=== PATIENT | male | born 1960 | race Caucasian/White ===

== ENCOUNTER 2020-07-14 12:33 | Outpatient (CLI) | payer OTHER, BC, SELFPAY ==
[2020-07-14 13:13] LABS: Basophils Absolute Auto 0.1 K/mm3 (0.0-0.1); Eosinophils Absolute Auto 0.1 K/mm3 (0-0.3); Eosinophils Percent Auto 0.9 % (0-4.4); Hematocrit 44.7 % (42.0-52.0); Hemoglobin 14.7 g/dL (14.0-18.0); Immature Granulocyte Absolute 0.02 K/mm3 (0.00-0.031); Immature Granulocyte Percent A 0.3 % (0-0.5); Lymphocytes Absolute Auto 1.82 K/mm3 (0.9-3.2); Mean Corpuscular HGB Conc 32.9 g/dl (32-36); Mean Corpuscular Hemoglobin 29.4 pg (26-34); Mean Corpuscular Volume 89.4 fl (80-100); Mean Platelet Volume 9.7 fl (7.4-10.4); Monocytes Absolute Auto 0.4 K/mm3 (0.1-0.6); Neutrophils Absolute Auto 4.6 K/mm3 (1.3-6.7); Neutrophils Percent Auto 65.8 % (45.5-73.1); Platelet Count Result 426 k/mm3 (150-375); Red Cell Distribution Width 13.1 % (11.5-14.5)
[2020-07-14 13:36] LABS: Alanine Aminotransferase 38 U/L (4-50); Alkaline Phosphatase 144 U/L (38-126); Anion Gap 5 mmol/L (8-16); Aspartate Amino Transferase 36 U/L (17-59); Bilirubin,Total 0.6 mg/dL (0.2-1.3); Blood Urea Nitrogen 17 mg/dL (9-20); Calcium 9.2 mg/dL (8.4-10.2); Carbon Dioxide 31 mmol/L (22-30); Chloride 107 mmol/L (98-107); Estimated Glomerular Filt Rate > 60; Glucose 117 mg/dL (75-110); Potassium 4.5 mmol/L (3.4-5.0); Sodium 143 mmol/L (137-145)
== END 2020-07-14 12:34 | disposition home or self-care (01) ==
PROVIDERS: PCP Internal Medicine; Visit Provider Nurse Practitioner
DX: Z01.812 Encounter for preprocedural laboratory examination (principal)
CPT/HCPCS: 36415; 80053; 85025

== ENCOUNTER → 2021-06-19 01:23 | Outpatient (CLI) | payer BC, SELFPAY ==
[2021-06-21 14:20] LABS: SARS-CoV-2 RNA PCR Positive
== END ==
PROVIDERS: PCP Internal Medicine; Visit Provider Nurse Practitioner
DX: U07.1 COVID-19 (principal)
CPT/HCPCS: C9803; U0003; U0005

== ENCOUNTER 2023-07-14 17:55 | Emergency (ER) | payer BC, SELFPAY ==
--- NOTE | ~2023-07-14 | XR_ITS ---
EXAMINATION: XR hand RT min 3V DATE: 07/14/2023 18:11 INDICATION: Right hand injury. TECHNIQUE: 3 views of right hand were obtained. COMPARISON: None. FINDINGS: There is an oblique fracture of diaphysis of first metacarpal. The distal fracture fragment demonstrates near-anatomic alignment. There is mild osteoarthritis of first carpometacarpal joint an d most of the interphalangeal joints. There is moderate osteoarthritis of third distal interphalangea l joint. There is degenerative cystic change in proximal lunate. IMPRESSION: 1. Oblique fracture of diaphysis of first metacarpal. Reviewed, dictated and finalized at location E. [facility]
[2023-07-14 18:02] VITALS: BP 132/88; PULSE 84; RESP 16; TEMP 37.3; O2SAT 98
--- NOTE | 2023-07-14 18:10 | ED.UPPEXIN ---
HPI - Extremity Injury (Upper) General Chief Complaint: Extremity Injury, Upper Stated Complaint: R HAND SWELLING Time Seen by Provider: 07/14/23 18:10 Source: patient, RN notes reviewed and old records reviewed Mode of arrival: ambulatory Limitations: no limitations History of Present Illness HPI narrative: 63-year-old male presents to the [facility] with complaints of right hand pain and swelling. Patient states that on Monday he was working in his garage when he was torquing an object when at the flu back at him and hit him in the base of the right hand just below the thumb. Bruising and swelling noted. Has been applying ice to it. Small abrasion that is clean dry noted to the area. No laceration Patient reports his last Tdap was approximately 3 years ago, is declining a tetanus shot today. MD complaint: injury to: right and hand Onset (ago): day(s) (2) Treatments prior to arrival: other (Ice) Related Data Home Medications Medication Instructions Recorded Confirmed No Home Medications 07/14/23 07/14/23 Allergies Allergy/AdvReac Type Severity Reaction Status Date / Time No Known Allergies Allergy Unverified 07/14/23 18:03 Review of Systems Review of Systems: All systems reviewed & are unremarkable except as noted in HPI and below Constitutional: Constitutional: Reports no additional constitutional complaints Eyes: Eyes: Reports no additional eye complaints ENT: Reports system reviewed and no additional complaints, except as documented Cardiovascular: Cardiovascular: Reports no additional cardiovascular complaints, Denies chest pain and Denies dyspnea Respiratory: Respiratory: Reports no additional respiratory complaints, Denies chest congestion, Denies cough and Denies dyspnea Gastrointestinal: Gastrointestinal: Reports no additional gastrointestinal complaints, Denies abdominal pain, Denies nausea and Denies vomiting Musculoskeletal: Musculoskeletal: Reports as per HPI Integumentary/Breasts: Skin/Breast: Reports system reviewed and no additional complaints, except as docu Neurologic: Reports system reviewed and no additional complaints, except as documented Psychiatric: Psychiatric: Reports no additional psychiatric complaints Allergic/Immunologic: Allergic/Immunologic: Reports no additional allergic/immunologic complaints PMFSH Past Medical History Medical History Leg fracture, right Surgical History Surgical History Lower extremity surgery planned Pin and 4 screws Family History Family History Father Family history of lung cancer Mother CHF (congestive heart failure) COPD (chronic obstructive pulmonary disease) Social History Social History Smoking status: Former smoker Smoking end date: 07/10/84 Alcohol intake: current Comments At the time of my signature, I reviewed and agree with the nursing past medical, surgical, social, and family history. There is no relevant family history pertinent to the patient complaint. Exam Const: General: cooperative, healthy appearing, comfortable, no acute distress, well developed, alert and well nourished Nutritional Appearance: well nourished Orientation/consciousness: patient oriented x3 Limitations: no limitations HENMT: Head: normal to inspection Ears: hearing grossly normal bilaterally and external ears normal Face/Nose/Sinus: Normal external nose present, Normal nares present, Normal nasal mucous membranes and turbinates present, normal facial exam and face symmetric Face and sinus: normal facial exam and face symmetric Mouth: Yes lip normal and Yes moist mucous membranes Eyes: General: appearance normal, both eyes and all related structures Alignment and Position: alignment normal Periorbital: periorbital find
--- NOTE | 2023-07-14 18:23 | PC.NURSE ---
patient refuse update on tetanus shot today, stated he is up to date last tetanus about 3 years ago
== END 2023-07-14 18:55 | disposition home or self-care (01) ==
PROVIDERS: Emergency Provider Nurse Practitioner; PCP Internal Medicine
DX: S62.241A Displaced fracture of shaft of first metacarpal bone, right hand, initial encounter for closed fracture (principal); W22.8XXA Striking against or struck by other objects, initial encounter; Z87.891 Personal history of nicotine dependence
CPT/HCPCS: 29125; 73130; 99204; A4565; G0463

== ENCOUNTER 2023-07-31 08:48 | Outpatient (CLI) | payer BC, SELFPAY ==
--- NOTE | ~2023-07-31 | XR_ITS ---
Right Hand Technique: PA, oblique, and lateral views were obtained. Clinical History: First metacarpal fracture COMPARISON: 07/14/2023 Findings: Oblique fracture of the midshaft of the first metacarpal is unchanged from prior exam, stat us post interval casting/splinting. Remaining osseous structures are intact. Joint spaces are preserv ed. Soft tissues are unremarkable. Impression: Stable oblique fracture of the first metacarpal, status post interval casting/splinting. Reviewed, dictated and finalized at location [facility] Impression: Stable oblique fracture of the first metacarpal, status post interval casting/s plinting.
== END 2023-07-31 08:49 | disposition home or self-care (01) ==
PROVIDERS: PCP Internal Medicine; Visit Provider Plastic Surgery
DX: S62.201A Unspecified fracture of first metacarpal bone, right hand, initial encounter for closed fracture (principal); X58.XXXA Exposure to other specified factors, initial encounter
CPT/HCPCS: 73130

== ENCOUNTER 2023-08-21 09:06 | Outpatient (CLI) | payer BC, SELFPAY ==
--- NOTE | ~2023-08-21 | XR_ITS ---
EXAMINATION: XR hand RT min 3V DATE: 08/21/2023 09:22 INDICATION: Right first metacarpal fracture. TECHNIQUE: 3 views of right hand were obtained. COMPARISON: Right hand radiographs 07/31/2023, 07/14/2023 FINDINGS: There is an oblique fracture of diaphysis of first metacarpal. The distal fracture fragment demonstrates one cortical width ulnar displacement and 23 degrees palmar angulation. There is mild o steoarthritis of triscaphe joint, first carpometacarpal joint, and some of the interphalangeal joints . There is moderate osteoarthritis of third distal interphalangeal joint. IMPRESSION: 1. Unchanged oblique fracture of diaphysis of first metacarpal. 2. Polyarticular osteoarthritis. Reviewed, dictated and finalized at location A. [facility]
== END 2023-08-21 09:07 | disposition home or self-care (01) ==
PROVIDERS: PCP Internal Medicine; Visit Provider Plastic Surgery
DX: M19.041 Primary osteoarthritis, right hand (principal); S62.201A Unspecified fracture of first metacarpal bone, right hand, initial encounter for closed fracture; X58.XXXA Exposure to other specified factors, initial encounter
CPT/HCPCS: 73130

== ENCOUNTER 2023-09-22 12:15 | Outpatient (RCR) | payer BC, SELFPAY ==
--- NOTE | 2023-09-08 11:43 | OTOPEVAL1 ---
Assessment and note entered by SHAE Emery/Cassidy, NO Evaluation Information 09/08/23 Assessment Status Evaluation Diagnosis Nondisplaced fracture of shaft of 1st metacarpal bone, right hand Onset 07/12/22 Subjective Information Patient fractured his 1st metacarpal ~8 weeks ago. Treated conservatively. Patient presents to therapy to begin ROM. He reports residual swelling , stiffness, and pain have been very limiting. He reports he has been relying on his left hand a lot . He is regional tanker truck driver. Reported Pain Level Additional Pain Score Comments No pain at rest. Pain increased to 5-7/10 with ROM. Assessment OT Clinical Summary Patient presents with residual stiffness, weakness , and pain following a metacarpal fracture of the right thumb. Skilled OT indicated to maximize functional ROM, strength, and hand use for ADLs and work tasks through therapeutic exercise, HEP instruction/progression, and use of thermal modalities. Plan of Care Interventions Therapeutic Exercise,Manual Therapy,Therapeutic Activities,Hot Pack/Cold Pack,Paraffin OT Services Indicated Yes Treatment Frequency and 2x/week for 6 visits Duration These treatments will address the objective and functional deficits as defined above. The patient will be advanced safely and appropriately in order for the patient to progress towards his/her prior level of function. Additional exercises will be introduced and as well as a comprehensive home exercise program upon discharge, if needed, ?to ensure carryover of functional gains achieved in the clinic. This treatment plan has been reviewed and agreement upon by the patient.
--- NOTE | 2023-09-08 11:44 | OPREHPOC ---
Outpatient Therapy Plan of Care This is a Multidisciplinary Plan of Care that may contain components documented by all disciplines (PT, OT, and ST.) OT Problem 1 OT Problem #1 Knowledge Deficit OT Goal 1 Goal 1. Patient to be independent with instructed materials. Target Visit 7 OT Problem 2 OT Problem #2 Pain OT Goal 1 Goal 1. Patient to be independent with non-medication pain management techniques. Target Visit 7 OT Problem 3 OT Problem #3 Impaired Range of Motion OT Goal 1 Goal Improve ROM of the right UE: 1. Patient to be able to make a fist, touching all finger tips to the palm. 2. Patient to be able to flex the thumb to be able to touch the PIP joint of the small finger. Target Visit 7 OT Problem 4 OT Problem #4 Impaired Strength OT Goal 1 Goal 1. Patient to be able to complete [employer] and pinch strengthening with at least yellow theraputty x5 minutes. Target Visit 7
--- NOTE | 2023-10-31 14:57 | OTOPDC ---
Assessment and note entered by Anthony Gallegos, SHAE/Cassidy, CHT OT Discharge Notification 10/31/23 OT Clinical Summary Patient participated in 4 OT sessions following a right thumb fracture. He did not schedule a therapy reassessment and we have not been able to get a hold of him to schedule more appointments. Discharging OT at this time.
== END 2023-11-03 13:20 | disposition home or self-care (01) ==
LOC: ANHOT 12:15
PROVIDERS: PCP Internal Medicine; Visit Provider Plastic Surgery
DX: S62.244D Nondisplaced fracture of shaft of first metacarpal bone, right hand, subsequent encounter for fracture with routine healing (principal)
CPT/HCPCS: 97018; 97110; 97165

== ENCOUNTER 2023-09-25 09:00 | Outpatient (CLI) | payer BC, SELFPAY ==
--- NOTE | ~2023-09-25 | XR_ITS ---
Right Hand Technique: PA, oblique, and lateral views were obtained. Clinical History: Fracture follow-up COMPARISON: 08/21/2023 Findings: There is retained partial continued interval healing of fracture of the midshaft of the fir st metacarpal, with callus formation present. Osseous alignment is unchanged. No new fracture or disl ocation seen. There are mild degenerative changes of the DIP joints.. Joint spaces are preserved. Sof t tissues are unremarkable. Impression: Continued routine healing of fracture of the first metacarpal, as detailed above. Reviewed, dictated and finalized at location M. Impression: Continued routine healing of fracture of the first metacarpal, as detailed yoly robb
== END 2023-09-25 09:01 | disposition home or self-care (01) ==
LOC: ANHIMG 09:02
PROVIDERS: PCP Internal Medicine; Visit Provider Physician Assistant Surgical
DX: S62.201D Unspecified fracture of first metacarpal bone, right hand, subsequent encounter for fracture with routine healing (principal); X58.XXXD Exposure to other specified factors, subsequent encounter
CPT/HCPCS: 73130